=== PATIENT | female | born 1985 | race African-American/Black ===

== ENCOUNTER 2018-11-30 08:24 | Emergency (ER) | payer MEDICAID ==
[~2018-11-30] VITALS: Ht 167.6 cm; Wt 59.1 kg
[2018-11-30 08:35] VITALS: Ht 167.6 cm; Wt 59.1 kg
[2018-11-30] MEDS ORDERED: DEPO SHOT (08:36)
[2018-11-30] MEDS ORDERED: TYLENOL W/CODEI1 TAB PO (10:02)
[2018-11-30] MEDS ORDERED: PROVERA10 MG PO (10:02)
[2018-11-30 10:27] VITALS: BP 138/82
== END 2018-11-30 10:27 | disposition home or self-care (01) ==
LOC: D.ER 08:24
DX: R10.2 Pelvic and perineal pain (principal); N93.8 Other specified abnormal uterine and vaginal bleeding

== ENCOUNTER 2019-01-11 18:32 | Emergency (ER) | payer MEDICAID ==
[~2019-01-11] VITALS: Ht 167.6 cm; Wt 81.6 kg
[~2019-01-11 18:32] MED LIST: DEPO SHOT; PROVERA10 MG PO; TYLENOL W/CODEI1 TAB PO
[2019-01-11 19:09] VITALS: Ht 167.6 cm; Wt 81.6 kg
[2019-01-11] MEDS ORDERED: [UNRECOGNIZED DRUG - OTHER] (19:12)
[2019-01-11 19:49] LABS: BASOPHILS 0.3 % (0-2); EOSINOPHILS 6.1 % (0-7); HEMATOCRIT 37.2 % (36.0-48.0); HEMOGLOBIN 12.2 g/dL (12-16); IMMATURE GRANULOCYTES 0.2 % (0-5); LYMPHOCYTES 35.5 % (15-50); MCH 28.4 pg (26.0-34.0); MCHC 32.8 g/dL (31.0-37.0); MCV 86.5 fL (80.0-100.0); MEAN PLATELET VOLUME 9.2 fL (7.4-10.4); MONOCYTES 7.7 % (2-11); NEUTROPHILS 50.2 % (40-80); PLATELET COUNT 269 10x3/uL (130-400); WBC 6.6 10x3/uL (4.8-10.8)
[2019-01-11 20:16] LABS: ALBUMIN 3.6 g/dL (3.4-5.0); ALKALINE PHOSPHATASE 49 U/L (46-116); ALT (SGPT) 36 U/L (10-68); BILIRUBIN - TOTAL 0.12 mg/dL (0.2-1.3); CALC OSMOLALITY 281 mosm/kg (275-300); CALCIUM 8.8 mg/dL (8.5-10.1); CARBON DIOXIDE 28.2 mmol/L (21.0-32.0); CHLORIDE - SERUM 103 mmol/L (98-107); CREATININE - SERUM 0.8 mg/dL (0.6-1.3); GLUCOSE 76 mg/dL (74-106); POTASSIUM - SERUM 3.8 mmol/L (3.5-5.1); PROTEIN - SERUM 7.9 g/dL (6.4-8.2); SODIUM 142 mmol/L (136-145); UREA NITROGEN 13 mg/dL (7-18); eGFR NON AFRICAN AMERICAN 87 mL/min (90-120)
[2019-01-11 20:27] LABS: HCG SERUM NEGATIVE (NEGATIVE)
[2019-01-11 20:41] LABS: APPEARANCE CLEAR (CLEAR); BILIRUBIN NEGATIVE (NEGATIVE); COLOR YELLOW (YELLOW); GLUCOSE NEGATIVE (NEGATIVE); KETONE NEGATIVE (NEGATIVE); NITRITE NEGATIVE (NEGATIVE); PROTEIN NEGATIVE (NEGATIVE); UROBILINOGEN NORMAL (NORMAL)
[2019-01-11] MEDS ORDERED: TYLENOL W/CODEI1 TAB PO (21:14)
[2019-01-11 21:35] VITALS: BP 136/96
== END 2019-01-11 21:35 | disposition home or self-care (01) ==
LOC: D.ER 18:32
PROVIDERS: Family Medicine
DX: D25.9 Leiomyoma of uterus, unspecified (principal); M79.604 Pain in right leg

== ENCOUNTER 2019-03-16 21:42 | Emergency (ER) | payer MEDICAID ==
[~2019-03-16] VITALS: Ht 167.6 cm; Wt 68.2 kg
[~2019-03-16 21:42] MED LIST changes: +[UNRECOGNIZED DRUG - OTHER]
[2019-03-16 21:50] VITALS: Ht 167.6 cm; Wt 68.2 kg
[2019-03-16 23:10] LABS: APPEARANCE HAZY (CLEAR); BILIRUBIN 2+ (NEGATIVE); COLOR DK YELLOW (YELLOW); GLUCOSE NEGATIVE (NEGATIVE); KETONE NEGATIVE (NEGATIVE); NITRITE POSITIVE (NEGATIVE); PH 6.5 (5.0-6.0); PROTEIN TRACE mg/dL (NEGATIVE); SPECIFIC GRAVITY 1.015 (1.005-1.020)
[2019-03-16 23:23] LABS: AMORPHOUS SEDIMENT >1+ /lpf (NONE SEEN); BACTERIA FEW /hpf (NONE SEEN); EPITHELIAL CELLS 0-5 /hpf (0-5); HYALINE CAST RARE /lpf (NONE SEEN); MUCUS >1+ /lpf (NONE SEEN); RED CELLS - URINE 0-5 /hpf (0-5); WHITE CELLS - URINE 25-50 /hpf (0-5)
[2019-03-16 23:47] LABS: BASOPHILS 0.1 % (0-2); EOSINOPHILS 4.8 % (0-7); HEMOGLOBIN 11.5 g/dL (12-16); IMMATURE GRANULOCYTES 0.1 % (0-5); LYMPHOCYTES 36.4 % (15-50); MCH 28.3 pg (26.0-34.0); MCHC 32.9 g/dL (31.0-37.0); MEAN PLATELET VOLUME 9.4 fL (7.4-10.4); MONOCYTES 5.8 % (2-11); NEUTROPHILS 52.8 % (40-80); PLATELET COUNT 290 10x3/uL (130-400); RBC 4.07 10x6/uL (4.00-5.40)
[2019-03-17 00:11] LABS: ALBUMIN 3.4 g/dL (3.4-5.0); ALKALINE PHOSPHATASE 48 U/L (46-116); ALT (SGPT) 23 U/L (10-68); BILIRUBIN - TOTAL 0.18 mg/dL (0.2-1.3); CALC OSMOLALITY 277 mosm/kg (275-300); CALCIUM 8.7 mg/dL (8.5-10.1); CARBON DIOXIDE 26.8 mmol/L (21.0-32.0); CHLORIDE - SERUM 104 mmol/L (98-107); CREATININE - SERUM 0.7 mg/dL (0.6-1.3); GLUCOSE 88 mg/dL (74-106); POTASSIUM - SERUM 3.3 mmol/L (3.5-5.1); PROTEIN - SERUM 7.4 g/dL (6.4-8.2); SODIUM 141 mmol/L (136-145); UREA NITROGEN 6 mg/dL (7-18); eGFR NON AFRICAN AMERICAN > 90 mL/min (90-120)
[2019-03-17 00:12] LABS: AMYLASE - SERUM 66 U/L (25-115); LIPASE 174 U/L (73-393)
[2019-03-17 00:13] LABS: TROPONIN-I < 0.017 ng/mL (0.000-0.060)
[2019-03-17] MEDS ORDERED: ACETAMINOPHEN500 M1 PO (00:28)
[2019-03-17] MEDS ORDERED: MACROBID100 MG PO (00:28)
[2019-03-17] MEDS ORDERED: KEFLEX500 MG PO (00:28)
[2019-03-17] MEDS ORDERED: IBUPROFEN800 MG PO (00:28)
[2019-03-17 01:18] VITALS: BP 135/83
== END 2019-03-17 01:18 | disposition home or self-care (01) ==
LOC: D.ER 21:42
PROVIDERS: Family Medicine
DX: N39.0 Urinary tract infection, site not specified (principal); R10.30 Lower abdominal pain, unspecified; R30.0 Dysuria

== ENCOUNTER 2019-08-26 09:59 | Emergency (ER) | payer MEDICAID ==
[~2019-08-26] VITALS: Ht 167.6 cm; Wt 63.5 kg
[~2019-08-26 09:59] MED LIST changes: +ACETAMINOPHEN500 M1 PO; +IBUPROFEN800 MG PO; +KEFLEX500 MG PO; +MACROBID100 MG PO
[2019-08-26 10:01] VITALS: Ht 167.6 cm; Wt 63.5 kg
[2019-08-26] MEDS ORDERED: BACLOFEN20 M1 PO (12:20)
[2019-08-26] MEDS ORDERED: VOLTAREN75 MG PO (12:20)
[2019-08-26 13:01] VITALS: BP 135/73
== END 2019-08-26 13:02 | disposition home or self-care (01) ==
LOC: D.ER 09:59
DX: R51 Headache (principal); R10.9 Unspecified abdominal pain; F43.10 Post-traumatic stress disorder, unspecified; G89.29 Other chronic pain; Z90.49 Acquired absence of other specified parts of digestive tract; Y09 Assault by unspecified means; Y93.9 Activity, unspecified; Y92.9 Unspecified place or not applicable

== ENCOUNTER 2019-10-09 15:12 | Emergency (ER) | payer MEDICAID ==
[~2019-10-09 15:12] MED LIST changes: +BACLOFEN20 M1 PO; +VOLTAREN75 MG PO
[2019-10-09 15:24] VITALS: Ht 167.6 cm
[2019-10-09 15:52] LABS: APPEARANCE CLEAR (CLEAR); BILIRUBIN NEGATIVE (NEGATIVE); COLOR YELLOW (YELLOW); GLUCOSE NEGATIVE (NEGATIVE); KETONE NEGATIVE (NEGATIVE); NITRITE NEGATIVE (NEGATIVE); PROTEIN NEGATIVE (NEGATIVE); UROBILINOGEN NORMAL (NORMAL)
[2019-10-09 16:05] LABS: BASOPHILS 0.2 % (0-2); EOSINOPHILS 6.9 % (0-7); HEMATOCRIT 39.2 % (36.0-48.0); HEMOGLOBIN 13.1 g/dL (12-16); IMMATURE GRANULOCYTES 0.3 % (0-5); LYMPHOCYTES 34.1 % (15-50); MCH 28.7 pg (26.0-34.0); MCHC 33.4 g/dL (31.0-37.0); MCV 85.8 fL (80.0-100.0); MEAN PLATELET VOLUME 9.2 fL (7.4-10.4); MONOCYTES 5.4 % (2-11); NEUTROPHILS 53.1 % (40-80); PLATELET COUNT 272 10x3/uL (130-400); RBC 4.57 10x6/uL (4.00-5.40); RDW 13.9 % (11.5-14.5); WBC 9.2 10x3/uL (4.8-10.8)
[2019-10-09 16:14] LABS: CALC OSMOLALITY 278 mosm/kg (275-300); CALCIUM 9.2 mg/dL (8.5-10.1); CARBON DIOXIDE 28.7 mmol/L (21.0-32.0); CHLORIDE - SERUM 104 mmol/L (98-107); CREATININE - SERUM 0.7 mg/dL (0.6-1.3); GLUCOSE 94 mg/dL (74-106); POTASSIUM - SERUM 3.9 mmol/L (3.5-5.1); SODIUM 141 mmol/L (136-145); UREA NITROGEN 7 mg/dL (7-18); eGFR NON AFRICAN AMERICAN > 90 mL/min (90-120)
[2019-10-09 16:30] LABS: ALBUMIN 3.6 g/dL (3.4-5.0); ALKALINE PHOSPHATASE 58 U/L (46-116); ALT (SGPT) 15 U/L (10-68); AMYLASE - SERUM 53 U/L (25-115); BILIRUBIN - TOTAL 0.26 mg/dL (0.2-1.3); LIPASE 83 U/L (73-393); PROTEIN - SERUM 7.6 g/dL (6.4-8.2); THYROID STIMULATING HORMONE 0.76 uIU/mL (0.36-3.74)
[2019-10-09 16:31] LABS: TROPONIN-I < 0.017 ng/mL (0.000-0.060)
[2019-10-09 18:53] VITALS: BP 119/75
== END 2019-10-09 18:53 | disposition home or self-care (01) ==
LOC: D.ER 15:12
PROVIDERS: Emergency Medicine
DX: K59.00 Constipation, unspecified (principal); E03.9 Hypothyroidism, unspecified; R10.31 Right lower quadrant pain

== ENCOUNTER 2019-12-13 22:23 | Emergency (ER) | payer MEDICAID ==
[~2019-12-13] VITALS: Ht 167.6 cm; Wt 68.2 kg
[2019-12-13 22:39] VITALS: Ht 167.6 cm; Wt 68.2 kg
[2019-12-13] MEDS ORDERED: PENICILLIN V P500 MG PO (23:56)
[2019-12-14 00:09] VITALS: BP 146/99
== END 2019-12-14 00:09 | disposition home or self-care (01) ==
LOC: D.ER 22:23
DX: K08.89 Other specified disorders of teeth and supporting structures (principal); Z72.0 Tobacco use

== ENCOUNTER 2020-01-18 21:10 | Emergency (ER) | payer MEDICAID ==
[~2020-01-18] VITALS: Ht 167.6 cm; Wt 68.2 kg
[~2020-01-18 21:10] MED LIST changes: +PENICILLIN V P500 MG PO
[2020-01-18 21:18] VITALS: Ht 167.6 cm; Wt 68.2 kg
[2020-01-18 21:50] LABS: BASOPHILS 0.3 % (0-2); EOSINOPHILS 6.1 % (0-7); HEMATOCRIT 41.8 % (36.0-48.0); HEMOGLOBIN 13.5 g/dL (12-16); IMMATURE GRANULOCYTES 0.1 % (0-5); LYMPHOCYTES 42.4 % (15-50); MCH 28.6 pg (26.0-34.0); MCHC 32.3 g/dL (31.0-37.0); MCV 88.6 fL (80.0-100.0); MEAN PLATELET VOLUME 9.3 fL (7.4-10.4); MONOCYTES 7.9 % (2-11); NEUTROPHILS 43.2 % (40-80); PLATELET COUNT 275 10x3/uL (130-400); RBC 4.72 10x6/uL (4.00-5.40); RDW 14.4 % (11.5-14.5); WBC 7.1 10x3/uL (4.8-10.8)
[2020-01-18 21:50] LABS: BILIRUBIN NEGATIVE (NEGATIVE); GLUCOSE NEGATIVE (NEGATIVE); KETONE NEGATIVE (NEGATIVE); NITRITE NEGATIVE (NEGATIVE); SPECIFIC GRAVITY 1.015 (1.005-1.020); UROBILINOGEN NORMAL (NORMAL)
[2020-01-18 21:52] LABS: HCG URINE NEGATIVE (NEGATIVE)
[2020-01-18 22:00] LABS: CALC OSMOLALITY 274 mosm/kg (275-300); CALCIUM 9.1 mg/dL (8.5-10.1); CARBON DIOXIDE 27.6 mmol/L (21.0-32.0); CHLORIDE - SERUM 102 mmol/L (98-107); CREATININE - SERUM 0.9 mg/dL (0.6-1.3); GLUCOSE 88 mg/dL (74-106); POTASSIUM - SERUM 3.7 mmol/L (3.5-5.1); SODIUM 138 mmol/L (136-145); UREA NITROGEN 13 mg/dL (7-18); eGFR NON AFRICAN AMERICAN 76 mL/min (90-120)
[2020-01-18 22:09] LABS: ALKALINE PHOSPHATASE 66 U/L (30-120); ALT (SGPT) 22 U/L (10-68); AMYLASE - SERUM 69 U/L (25-115); BILIRUBIN - TOTAL 0.34 mg/dL (0.2-1.3); LIPASE 99 U/L (73-393); PROTEIN - SERUM 8.1 g/dL (6.4-8.2)
[2020-01-18 22:13] LABS: TROPONIN-I < 0.017 ng/mL (0.000-0.060)
[2020-01-18] MEDS ORDERED: VOLTAREN75 MG PO (23:17)
[2020-01-18] MEDS ORDERED: MIRALAX17 GM PO (23:17)
[2020-01-18 23:42] VITALS: BP 138/82
== END 2020-01-18 23:42 | disposition home or self-care (01) ==
LOC: D.ER 21:10
PROVIDERS: Emergency Medicine
DX: N83.201 Unspecified ovarian cyst, right side (principal); K59.00 Constipation, unspecified; R10.31 Right lower quadrant pain

== ENCOUNTER 2020-03-14 02:36 | Emergency (ER) | payer MEDICAID ==
[~2020-03-14] VITALS: Ht 167.6 cm; Wt 59.1 kg
[~2020-03-14 02:36] MED LIST changes: +MIRALAX17 GM PO
[2020-03-14 02:40] VITALS: Ht 167.6 cm; Wt 59.1 kg
[2020-03-14] MEDS ORDERED: PROPRANOLOL HCL20 MG PO (02:41)
[2020-03-14] MEDS ORDERED: BUTALB-APAP-CA1 EACH PO (02:42)
[2020-03-14] MEDS ORDERED: CHANTIX0.5 MG PO (02:42)
[2020-03-14] MEDS ORDERED: COZAAR25 MG PO (02:42)
[2020-03-14 03:19] LABS: CALC OSMOLALITY 277 mosm/kg (275-300); CALCIUM 8.9 mg/dL (8.5-10.1); CARBON DIOXIDE 26.5 mmol/L (21.0-32.0); CHLORIDE - SERUM 104 mmol/L (98-107); CREATININE - SERUM 0.9 mg/dL (0.6-1.3); GLUCOSE 87 mg/dL (74-106); POTASSIUM - SERUM 3.6 mmol/L (3.5-5.1); SODIUM 141 mmol/L (136-145); UREA NITROGEN 8 mg/dL (7-18); eGFR NON AFRICAN AMERICAN 76 mL/min (90-120)
[2020-03-14 03:24] LABS: ALBUMIN 3.7 g/dL (3.4-5.0); ALKALINE PHOSPHATASE 54 U/L (30-120); ALT (SGPT) 62 U/L (10-68); BASOPHILS 0.2 % (0-2); BILIRUBIN - TOTAL 0.38 mg/dL (0.2-1.3); EOSINOPHILS 4.1 % (0-7); HEMATOCRIT 39.6 % (36.0-48.0); HEMOGLOBIN 12.9 g/dL (12-16); IMMATURE GRANULOCYTES 0.1 % (0-5); LYMPHOCYTES 33.2 % (15-50); MCH 28.5 pg (26.0-34.0); MCHC 32.6 g/dL (31.0-37.0); MCV 87.6 fL (80.0-100.0); MEAN PLATELET VOLUME 9.6 fL (7.4-10.4); MONOCYTES 4.2 % (2-11); NEUTROPHILS 58.2 % (40-80); PLATELET COUNT 259 10x3/uL (130-400); PROTEIN - SERUM 7.6 g/dL (6.4-8.2); RBC 4.52 10x6/uL (4.00-5.40)
[2020-03-14 03:28] LABS: BILIRUBIN NEGATIVE (NEGATIVE); GLUCOSE NEGATIVE (NEGATIVE); KETONE MODERATE mg/dL (NEGATIVE); NITRITE NEGATIVE (NEGATIVE); SPECIFIC GRAVITY 1.025 (1.005-1.020); UROBILINOGEN NORMAL (NORMAL)
[2020-03-14 03:30] LABS: BACTERIA FEW /hpf (NEGATIVE); EPITHELIAL CELLS 0-5 /hpf (0-5); RED CELLS - URINE 0-5 /hpf (0-5); WHITE CELLS - URINE 0-5 /hpf (NEGATIVE)
[2020-03-14 03:44] LABS: HCG SERUM NEGATIVE (NEGATIVE)
[2020-03-14 04:01] LABS: UDS - AMPHET NEGATIVE QUAL (NEGATIVE); UDS - BARB POSITIVE QUAL (NEGATIVE); UDS - BENZO NEGATIVE QUAL (NEGATIVE); UDS - COCAINE NEGATIVE QUAL (NEGATIVE); UDS - OPIATE NEGATIVE QUAL (NEGATIVE); UDS - PCP NEGATIVE QUAL (NEGATIVE); UDS - THC POSITIVE QUAL (NEGATIVE)
[2020-03-14 04:41] VITALS: BP 164/98
== END 2020-03-14 04:41 | disposition home or self-care (01) ==
LOC: D.ER 02:36
PROVIDERS: Family Medicine
DX: R10.9 Unspecified abdominal pain (principal); I10 Essential (primary) hypertension; Z72.0 Tobacco use

== ENCOUNTER 2020-05-07 19:01 | Emergency (ER) | payer MEDICAID ==
[~2020-05-07] VITALS: Ht 167.6 cm; Wt 65.9 kg
[~2020-05-07 19:01] MED LIST changes: +BUTALB-APAP-CA1 EACH PO; +CHANTIX0.5 MG PO; +COZAAR25 MG PO; +PROPRANOLOL HCL20 MG PO
[2020-05-07 19:11] VITALS: Ht 167.6 cm; Wt 65.9 kg
[2020-05-07] MEDS ORDERED: MUSCLE RELAXER (19:13)
[2020-05-07] MEDS ORDERED: TORADOL10 MG PO (20:45)
[2020-05-07 21:29] VITALS: BP 132/74
== END 2020-05-07 21:29 | disposition home or self-care (01) ==
LOC: D.ER 19:01
DX: M94.0 Chondrocostal junction syndrome [Tietze] (principal); R07.9 Chest pain, unspecified; I10 Essential (primary) hypertension; Z72.0 Tobacco use

== ENCOUNTER 2020-05-13 21:21 | Emergency (ER) | payer MEDICAID ==
[~2020-05-13] VITALS: Ht 167.6 cm; Wt 59.1 kg
[~2020-05-13 21:21] MED LIST changes: +MUSCLE RELAXER; +TORADOL10 MG PO
[2020-05-13 21:27] VITALS: BP 112/68; Ht 167.6 cm; Wt 59.1 kg
[2020-05-13 22:17] LABS: HCG URINE NEGATIVE (NEGATIVE)
[2020-05-13] MEDS ORDERED: DIFLUCAN150 MG PO (22:23)
[2020-05-13 22:25] LABS: BILIRUBIN NEGATIVE (NEGATIVE); GLUCOSE NEGATIVE (NEGATIVE); KETONE NEGATIVE (NEGATIVE); NITRITE NEGATIVE (NEGATIVE); UROBILINOGEN NORMAL (NORMAL)
[2020-05-13 22:26] LABS: BACTERIA FEW /hpf (NEGATIVE); EPITHELIAL CELLS 0-5 /hpf (0-5); RED CELLS - URINE 0-5 /hpf (0-5); WHITE CELLS - URINE 0-5 /hpf (NEGATIVE)
[2020-05-13] MEDS ORDERED: MACROBID100 MG PO (22:34)
== END 2020-05-13 22:43 | disposition home or self-care (01) ==
LOC: D.ER 21:21
PROVIDERS: Emergency Medicine
DX: B37.3 Candidiasis of vulva and vagina (principal); I10 Essential (primary) hypertension; Z72.0 Tobacco use

== ENCOUNTER 2021-02-24 02:40 | Emergency (ER) | payer MEDICAID ==
[~2021-02-24] VITALS: Ht 167.6 cm; Wt 63.6 kg
[~2021-02-24 02:40] MED LIST changes: +DIFLUCAN150 MG PO
[2021-02-24 02:45] VITALS: Ht 167.6 cm; Wt 63.6 kg
[2021-02-24 03:18] LABS: BILIRUBIN NEGATIVE (NEGATIVE); KETONE NEGATIVE (NEGATIVE); NITRITE NEGATIVE (NEGATIVE); UROBILINOGEN NORMAL mg/dL (< 2)
[2021-02-24 03:41] LABS: BASOPHILS 0.5 % (0-2); EOSINOPHILS 7.6 % (0-7); HEMATOCRIT 39.1 % (36.0-48.0); HEMOGLOBIN 12.9 g/dL (12-16); IMMATURE GRANULOCYTES 0.2 % (0-5); LYMPHOCYTE ABS# 2.53 10x3/uL (1.18-3.74); LYMPHOCYTES 42.7 % (15-50); MCH 28.2 pg (26.0-34.0); MCV 85.6 fL (80.0-100.0); MEAN PLATELET VOLUME 9.9 fL (7.4-10.4); MONOCYTES 6.9 % (2-11); NEUTROPHIL ABS# 2.49 10x3/uL (1.56-6.13); NEUTROPHILS 42.1 % (40-80); PLATELET COUNT 281 10x3/uL (130-400); RBC 4.57 10x6/uL (4.00-5.40); WBC 5.9 10x3/uL (4.8-10.8)
[2021-02-24 03:48] LABS: CALC OSMOLALITY 285 mosm/kg (275-300); CALCIUM 9.6 mg/dL (8.5-10.1); CARBON DIOXIDE 31.4 mmol/L (21.0-32.0); CHLORIDE - SERUM 105 mmol/L (98-107); CREATININE - SERUM 0.8 mg/dL (0.6-1.3); GLUCOSE 92 mg/dL (74-106); POTASSIUM - SERUM 3.8 mmol/L (3.5-5.1); SODIUM 144 mmol/L (136-145); UREA NITROGEN 10 mg/dL (7-18); eGFR NON AFRICAN AMERICAN 86 mL/min (90-120)
[2021-02-24 03:54] LABS: ALBUMIN 3.8 g/dL (3.4-5.0); ALKALINE PHOSPHATASE 58 U/L (30-120); ALT (SGPT) 26 U/L (10-68); BILIRUBIN - TOTAL 0.24 mg/dL (0.2-1.3); LIPASE 123 U/L (73-393); PROTEIN - SERUM 7.5 g/dL (6.4-8.2)
[2021-02-24] MEDS ORDERED: HYDROCODON-ACE1 EAC7 PO (05:03)
[2021-02-24] MEDS ORDERED: PROTONIX40 MG PO (05:03)
[2021-02-24 05:11] VITALS: BP 145/88
== END 2021-02-24 05:11 | disposition home or self-care (01) ==
LOC: D.ER 02:40
PROVIDERS: Emergency Medicine
DX: K29.60 Other gastritis without bleeding (principal); A04.8 Other specified bacterial intestinal infections; I10 Essential (primary) hypertension; Z72.0 Tobacco use; R10.11 Right upper quadrant pain

== ENCOUNTER 2021-02-26 09:28 | Emergency (ER) | payer MEDICAID ==
[~2021-02-26] VITALS: Ht 167.6 cm; Wt 59.1 kg
[~2021-02-26 09:28] MED LIST changes: +HYDROCODON-ACE1 EAC7 PO; +PROTONIX40 MG PO
[2021-02-26 09:32] VITALS: BP 189/119; Ht 167.6 cm; Wt 59.1 kg
== END 2021-02-26 09:45 | disposition home or self-care (01) ==
LOC: D.ER 09:28
DX: G89.29 Other chronic pain (principal); R10.9 Unspecified abdominal pain; I10 Essential (primary) hypertension